=== PATIENT | male | born 1960 | race Caucasian/White ===

== ENCOUNTER 2019-07-20 13:53 | Emergency (ER) | payer MEDICAID, OTHER ==
[~2019-07-20] VITALS: Ht 172.7 cm; Wt 75.0 kg
[~2019-07-20 13:53] MED LIST: ALBU8.5H8 IH; ATEN100T PO; BUPR150T8 PO; COMBIH IH; GABA-531 PO; HYDR50CA9 PO; IBUP-2271 PO; LISI-662 PO; MUPI22O; PARO10TA89 PO; PRAZ5 PO; SIMV-259 PO; TRIHEXYPHENIDYL
[2019-07-20 15:27] VITALS: BP 129/71
== END 2019-07-20 15:29 | disposition home or self-care (01) ==
LOC: EMS 13:53
DX: I10 Essential (primary) hypertension (principal); R56.9 Unspecified convulsions; F17.210 Nicotine dependence, cigarettes, uncomplicated; E78.00 Pure hypercholesterolemia, unspecified; Z79.899 Other long term (current) drug therapy; Z79.01 Long term (current) use of anticoagulants